=== PATIENT | male | born 1985 | race African-American/Black ===

== ENCOUNTER 2017-06-09 05:17 | Emergency (ER) | payer OTHER ==
[~2017-06-09] VITALS: Ht 175.3 cm; Wt 100.0 kg
[2017-06-09 06:23] LABS: HEMATOCRIT 42.1 % (38.0-50.0); HEMOGLOBIN 14.3 G/DL (12.5-16.6); MCH 30.4 PG (29.0-34.0); MCV 89.4 FL (86-99); PLATELET COUNT 282 K/uL (156-360); RBC DIS.WIDTH-CV 12.7 % (11.8-14.6); RBC DIS.WIDTH-SD 41.8 % (39-53); RED BLOOD COUNT 4.71 M/uL (4.00-5.50); WHITE BLOOD COUNT 7.1 K/uL (4.1-10.2)
[2017-06-09] MEDS ORDERED: ZITHROMAX Z-PA250 MG PO (06:34)
[2017-06-09] MEDS ORDERED: NARCAN4 MG NS (06:34)
[2017-06-09 06:37] LABS: ALBUMIN 4.2 g/dL (3.2-4.8); CHLORIDE 106 mEq/L (99-109); POTASSIUM 3.5 mEq/L (3.7-5.4); SODIUM 144 mEq/L (136-147)
[2017-06-09 06:39] LABS: GLUCOSE 195 mg/dL (70-99); TOTAL PROTEIN 7.7 g/dL (6.4-8.3)
[2017-06-09 06:41] LABS: TOTAL BILIRUBIN 0.4 mg/dL (0.0-1.0)
[2017-06-09 06:42] LABS: SERUM ETHYL ALCOHOL < 10 mg/dL
[2017-06-09 06:43] LABS: ALKALINE PHOSPHATASE 83 IU/L (3-129); CREATININE 1.5 mg/dL (0.6-1.3); GFR ESTIMATE (CALCULATED) > 59 mL/min/ (58.99-99999)
[2017-06-09 06:44] LABS: AST (GOT) 75 IU/L (2-34)
[2017-06-09 06:45] LABS: UREA NITROGEN (BUN) 13 mg/dL (9-23)
[2017-06-09 06:46] LABS: SALICYLATE < 5.0 MG/DL (15-30)
[2017-06-09 06:47] LABS: ACETAMINOPHEN (TYLENOL) < 10 mcg/mL (10-30); ALT (GPT) 73 IU/L (3-49); LIPASE 20 U/L (1.0-51.0)
[2017-06-09 07:47] VITALS: BP 116/70
== END 2017-06-09 07:51 | disposition left against medical advice (07) ==
LOC: EME → EDBD 05:17 → EME 05:17
PROVIDERS: Emergency Medicine
DX: T40.601A Poisoning by unspecified narcotics, accidental (unintentional), initial encounter (principal); R40.4 Transient alteration of awareness; Y92.410 Unspecified street and highway as the place of occurrence of the external cause; J69.0 Pneumonitis due to inhalation of food and vomit; R94.31 Abnormal electrocardiogram [ECG] [EKG]; F17.200 Nicotine dependence, unspecified, uncomplicated
CPT/HCPCS: 70450; 71045; 80053; 83690; 85027; 93005; 99281; 99283; G0480; J2310

== ENCOUNTER 2017-07-02 18:17 | Emergency (ER) | payer OTHER ==
[~2017-07-02] VITALS: Ht 175.3 cm; Wt 98.1 kg
[~2017-07-02 18:17] MED LIST: NARCAN4 MG NS; ZITHROMAX Z-PA250 MG PO
[2017-07-02 18:50] LABS: HEMATOCRIT 36.8 % (38.0-50.0); HEMOGLOBIN 12.6 G/DL (12.5-16.6); MCH 29.9 PG (29.0-34.0); MCHC 34.2 G/DL (30.0-36.0); MCV 87.2 FL (86-99); PLATELET COUNT 289 K/uL (156-360); RBC DIS.WIDTH-CV 12.3 % (11.8-14.6); RBC DIS.WIDTH-SD 39.1 % (39-53); RED BLOOD COUNT 4.22 M/uL (4.00-5.50); WHITE BLOOD COUNT 6.2 K/uL (4.1-10.2)
[2017-07-02 19:21] LABS: CHLORIDE 105 MEQ/L (99-109); CREATININE 0.9 MG/DL (0.6-1.3); GFR ESTIMATE (CALCULATED) > 59 mL/min/ (58.99-99999); GLUCOSE 109 mg/dL (70-99); POTASSIUM 4.1 MEQ/L (3.7-5.4); SODIUM 137 MEQ/L (136-147); UREA NITROGEN (BUN) 7 mg/dL (9-23)
[2017-07-02 19:23] LABS: ERTH.SED.RATE 53 MM/HR (0-15)
[2017-07-02] MEDS ORDERED: CLINDAMYCIN HC300 MG PO (19:30)
[2017-07-02] MEDS ORDERED: ULTRAM50 MG PO (19:30)
[2017-07-02 19:45] LABS: C-REACTIVE PROTEIN 24.7 MG/L (0-10)
[2017-07-02 19:55] VITALS: BP 132/86
== END 2017-07-02 19:56 | disposition home or self-care (01) ==
LOC: EME 18:17
PROVIDERS: Nurse Practitioner Family
DX: L03.011 Cellulitis of right finger (principal); L02.511 Cutaneous abscess of right hand; F17.200 Nicotine dependence, unspecified, uncomplicated
CPT/HCPCS: 73130; 80048; 85027; 85651; 86140; 99281; 99284

== ENCOUNTER 2017-08-30 11:39 | Emergency (ER) | payer OTHER ==
[~2017-08-30] VITALS: Ht 175.3 cm; Wt 91.9 kg
[~2017-08-30 11:39] MED LIST changes: +CLINDAMYCIN HC300 MG PO; +LEVETIRACETAM750 MG PO; +MEDROL DOSEPAK4 MG PO; +ULTRAM50 MG PO
[2017-08-30 16:05] VITALS: BP 127/76
== END 2017-08-30 16:07 | disposition home or self-care (01) ==
LOC: EME 11:39 → RME 11:39
DX: L02.411 Cutaneous abscess of right axilla (principal); L02.412 Cutaneous abscess of left axilla
CPT/HCPCS: 99281; 99283

== ENCOUNTER 2017-09-24 16:20 | Inpatient (IN) | payer OTHER ==
[~2017-09-24] VITALS: Ht 175.3 cm; Wt 90.2 kg
[2017-09-24 17:12] LABS: HEMATOCRIT 41.7 % (38.0-50.0); HEMOGLOBIN 14.3 G/DL (12.5-16.6); MCH 29.4 PG (29.0-34.0); MCHC 34.3 G/DL (30.0-36.0); MCV 85.6 FL (86-99); PLATELET COUNT 312 K/uL (156-360); RBC DIS.WIDTH-CV 13.9 % (11.8-14.6); RBC DIS.WIDTH-SD 43.5 % (39-53); RED BLOOD COUNT 4.87 M/uL (4.00-5.50); WHITE BLOOD COUNT 7.1 K/uL (4.1-10.2)
[2017-09-24 17:21] LABS: ALBUMIN 3.6 g/dL (3.2-4.8)
[2017-09-24 17:22] LABS: CHLORIDE 105 mEq/L (99-109); POTASSIUM 3.8 mEq/L (3.7-5.4); SODIUM 142 mEq/L (136-147)
[2017-09-24 17:24] LABS: GLUCOSE 127 mg/dL (70-99); TOTAL PROTEIN 7.8 g/dL (6.4-8.3)
[2017-09-24 17:26] LABS: TOTAL BILIRUBIN 1.1 mg/dL (0.0-1.0)
[2017-09-24 17:27] LABS: ALKALINE PHOSPHATASE 166 IU/L (3-129); CREATININE 0.8 mg/dL (0.6-1.3); GFR ESTIMATE (CALCULATED) > 59 mL/min/ (58.99-99999)
[2017-09-24 17:29] LABS: AST (GOT) 102 IU/L (2-34); UREA NITROGEN (BUN) 9 mg/dL (9-23)
[2017-09-24 17:30] LABS: ALT (GPT) 361 IU/L (3-49)
[2017-09-24 20:52] LABS: INTER. NORMALIZED RATIO 1.2
[2017-09-24 20:54] LABS: PTT 28.3 SEC (25-37)
[2017-09-24 21:35] LABS: AMPHETAMINE NEGATIVE (500 ng/mL); BARBITURATES NEGATIVE (200 ng/mL); BENZODIAZEPINES NEGATIVE (150 ng/mL); BUPRENORPHINE NEGATIVE (10 ng/mL); COCAINE PRESUMPTIVE POSITIVE (150 ng/mL); METHADONE NEGATIVE (200 ng/mL); METHAMPHETAMINE NEGATIVE (500 ng/mL); OPIATES (MORPHINE) NEGATIVE (100 ng/mL); OXYCODONE NEGATIVE (100 ng/mL); PHENCYCLIDINE NEGATIVE (25 ng/mL); PROPOXYPHENE NEGATIVE (300 ng/mL); THC CANNABINOIDS PRESUMPTIVE POSITIVE (50 ng/mL); TRICYCLIC ANTIDEPRESSANTS NEGATIVE (300 ng/mL)
[2017-09-24 22:00] VITALS: BP 129/62
[2017-09-24 22:15] VITALS: BP 129/62
[2017-09-25] VITALS: BP 128/72
[2017-09-25 04:08] VITALS: BP 130/74
[2017-09-25 08:11] VITALS: BP 131/86
[2017-09-25 12:13] VITALS: BP 145/73
[2017-09-25 19:26] VITALS: BP 130/64
[2017-09-25 23:27] VITALS: BP 118/68
[2017-09-26] VITALS (8 sets, daily range): BP systolic 127–150; BP diastolic 68–88
[2017-09-26 21:37] LABS: HCG Total (Tumor Marker)+ <2 mIU/mL (<5)
== END 2017-09-26 16:15 | disposition short-term general hospital (02) | DRG 54 ==
LOC: EME 16:20 → 3EAST 20:05 → EDOF 20:05 → ENRESERV 20:35 → 3EAST 21:35 → ENRESERV 09-26 12:03 → CANRESERV 09-26 12:03 → ENRESERV 09-26 12:22 → 4WEST 09-26 13:54
PROVIDERS: Anesthesiology; Emergency Medicine; Neurological Surgery
PROC: 0H9KXZZ Drainage of Right Lower Leg Skin, External Approach (ICD-10-PCS; principal; 2017-09-24)
DX: C79.31 Secondary malignant neoplasm of brain (principal); G93.6 Cerebral edema; G93.5 Compression of brain; C80.1 Malignant (primary) neoplasm, unspecified; L02.415 Cutaneous abscess of right lower limb; B95.62 Methicillin resistant Staphylococcus aureus infection as the cause of diseases classified elsewhere; R53.83 Other fatigue; T40.2X5A Adverse effect of other opioids, initial encounter; F17.200 Nicotine dependence, unspecified, uncomplicated; Z91.14 Patient's other noncompliance with medication regimen; Z91.19 Patient's noncompliance with other medical treatment and regimen
CPT/HCPCS: 70450; 76870; 80048 91; 80053; 80185; 82105 90; 82948; 83615; 84702 90; 84999; 85027; 85610; 85730; 87070; 87075; 87077; 87147; 87186; 87205; 87641; 99281; 99285; J1100; J1165; J3370; J3480; J7050